=== PATIENT | male | born 1965 | race Caucasian/White ===

== ENCOUNTER 2016-09-08 19:57 | Emergency (ER) | payer BC ==
[~2016-09-08] VITALS: Ht 170.2 cm; Wt 71.0 kg
[~2016-09-08 19:57] MED LIST: CEPH500C3 PO; LORTA5 PO; PRED20 PO
[2016-09-08 20:00] VITALS: BP 154/103; PULSE 99; RESP 16; TEMP 98; O2SAT 96
[2016-09-08] MEDS ORDERED: NORC5TAB PO (22:13)
[2016-09-08] MEDS ORDERED: PRED20 PO (22:13)
[2016-09-08] MEDS ORDERED: AUGM875T PO (22:52)
--- NOTE | 2016-09-08 22:52 | PD ---
HPI Chief Complaint: ENT Complaint Time Seen by Provider: 22:50 Travel History International Travel<30 days: No Contact w/Intl Traveler<30days: No Traveled to known affect area: No History of Present Illness HPI 50-year-old male presents to emergency department for evaluation right ear pain. Patient states that he has had intermittent ear infections for the last year. He is been unable to follow-up with your nose and throat specialist due to insurance. Patient states over the last week the right ear pain has returned. She denies any trauma. No fever or chills. No drainage from the ear. He has not been recently ill. He has no other symptoms to report. PFSH Past Medical History Diminished Hearing: No Gastrointestinal Disorders: Yes (CROHNS DISEASE) Tetanus Vaccination: < 5 Years Influenza Vaccination: No Past Surgical History Abdominal Surgery: Yes (COLON RESECTION FOR CROHNS X 2) Social History Alcohol Use: Yes (OCCASSIONAL) Tobacco Use: Yes (1 PPD OVER 20 YEARS) Substance Use: No Allergies-Medications (Allergen,Severity, Reaction): Coded Allergies: No Known Allergies (Unverified , 09/08/16) Reported Meds & Prescriptions Reported Meds & Active Scripts Active Augmentin (Amoxicillin-Clavulanate) 875-125 mg Tab 875 Mg PO BID 14 Days not for use in CrCl <30 ml/min. Reported Worth (Hydrocodone-Acetaminophen) 5-325 mg Tab 1 Tab PO Q4H PRN Prednisone 20 Mg Tab 20 Mg PO DAILY Review of Systems Except as stated in HPI: all other systems reviewed are Neg Physical Exam Narrative GENERAL: Well-nourished, well-developed male patient, ambulatory no acute distress SKIN: Warm and dry. HEAD: Normocephalic. No mastoid tenderness EARS: Bilateral pinnae and external canals appear within normal limits left tympanic membranes without erythema, dullness or perforation. The right tympanic membrane is difficult to assess. There appears to be some degree of perforation. No drainage. Mild erythema. EYES: No scleral icterus. No injection or drainage. NECK: Supple, trachea midline. No JVD or lymphadenopathy. CARDIOVASCULAR: Regular rate and rhythm without murmurs, gallops, or rubs. RESPIRATORY: Breath sounds equal bilaterally. No accessory muscle use. GASTROINTESTINAL: Abdomen soft, non-tender, nondistended. MUSCULOSKELETAL: No cyanosis, or edema. BACK: Nontender without obvious deformity. No CVA tenderness. Data Data Last Documented VS Vital Signs Date Time Temp Pulse Resp B/P Pulse Ox O2 Delivery O2 Flow Rate FiO2 09/08/16 20:00 98.0 99 16 154/103 96 Room Air Orders Ketorolac Inj (Toradol Inj) (09/08/16 23:00) MDM Medical Decision Making Medical Screen Exam Complete: Yes Emergency Medical Condition: Yes Medical Record Reviewed: Yes Differential Diagnosis Otitis media acute versus chronic versus recurrent versus otitis externa versus cholesteatoma versus perforated tympanic membrane versus rupture Narrative Course 50-year-old male presents to emergency department for evaluation of right ear pain, consistent with previous exacerbations of recurrent otitis media. Patient appears without distress. I discussed the patient maintained physician Dr. Barr. He'll be started on Augmentin. I really did strongly encouraged follow-up with your nose and throat specialist so they can go and properly assess his ear as these have been going on for one year and not ever evaluated by an senior research executive. She verbalizes understanding. He agrees to return immediately with any acute worsening symptoms. Diagnosis Primary Impression: Otitis media Qualified Code: H65.194 - Other recurrent acute nonsuppurative otitis media of right ear Referrals: Ear / Nose / Throat Specialist Primary Care Physician Patient Instructions: General Instructions, Otitis Media (ED) Additional Instructions: Avoid water submersion Follow-up to primary care provider Your nose and throat specialist evaluation Return immediately with any acute worsening of symptoms Med/Other Pt SpecificInfo: Prescription(s) given Scripts Amoxicillin-Clavulanate (Augmentin)875-125 mg [id number] Mg PO BID 14 Days Ref 0 not for use in CrCl <30 ml/min. Prov:Mary Way 09/08/16 Disposition: 01 DISCHARGE HOME Condition: Stable [address] Sep 08, 2016 22:52
[2016-09-08] MEDS ORDERED: KETOROLAC TROMETHAMINE 60 MG/2 ML (IM) VIAL IM ONE (23:00)
== END 2016-09-08 23:16 | disposition home or self-care (01) ==
LOC: NEPB 19:57
DX: H65.194 Other acute nonsuppurative otitis media, recurrent, right ear (principal); F17.200 Nicotine dependence, unspecified, uncomplicated; Z87.19 Personal history of other diseases of the digestive system
CPT/HCPCS: 96372; 99283; J1885

== ENCOUNTER 2017-05-02 14:44 | Emergency (ER) | payer SELFPAY ==
[~2017-05-02] VITALS: Ht 170.2 cm; Wt 67.2 kg
[~2017-05-02 14:44] MED LIST changes: +AUGM875T PO; -CEPH500C3 PO; -LORTA5 PO; +NORC5TAB PO
[2017-05-02 14:46] VITALS: BP 131/86; PULSE 106; RESP 18; TEMP 98.3; O2SAT 96
--- NOTE | 2017-05-02 14:57 | PD ---
Physical Exam Time Seen by Provider: 14:56 Narrative Pt has history of crohns disease. Has been on prednisone for years; stopped taking it about a month ago secondary to insurance reasons. Joint pain started 1 week ago. Generalized; constant severe. 04/10. Pt has been chilled and more lethargic with generalized weakness. Pt has history of chronic pain on hydrocodone, gabapentin, and flexeril Data Data Last Documented VS Vital Signs Date Time Temp Pulse Resp B/P (MAP) Pulse Ox O2 Delivery O2 Flow Rate FiO2 05/02/17 21:46 93 20 113/73 (86) 100 05/02/17 19:15 Room Air 05/02/17 14:46 98.3 Orders Orders Complete Blood Count With Diff (05/02/17 14:58) Basic Metabolic Panel (Bmp) (05/02/17 14:58) Westergren Sedimentation Rate (05/02/17 14:58) Urinalysis - C+S If Indicated (05/02/17 19:14) Chest, Single Ap (05/02/17 19:14) Electrocardiogram (05/02/17 19:25) Creatine Kinase (Cpk) (05/02/17 19:25) Ckmb (Isoenzyme) Profile (05/02/17 19:25) Troponin I (05/02/17 19:25) B-Type Natriuretic Peptide (05/02/17 19:25) D-Dimer (05/02/17 19:25) Orthostatic Vital Signs (05/02/17 19:25) Sodium Chlor 0.9% 1000 Ml Inj (Ns 1000 M (05/02/17 20:15) Ketorolac Inj (Toradol Inj) (05/02/17 20:15) Labs Laboratory Tests Test 05/02/17 15:08 05/02/17 19:35 05/02/17 19:40 White Blood Count 11.4 TH/MM3 Red Blood Count 4.31 MIL/MM3 Hemoglobin 14.8 GM/DL Hematocrit 43.2 % Mean Corpuscular Volume 100.2 FL Mean Corpuscular Hemoglobin 34.4 PG Mean Corpuscular Hemoglobin Concent 34.3 % Red Cell Distribution Width 12.5 % Platelet Count 466 TH/MM3 Mean Platelet Volume 7.3 FL Neutrophils (%) (Auto) 71.1 % Lymphocytes (%) (Auto) 17.7 % Monocytes (%) (Auto) 7.3 % Eosinophils (%) (Auto) 3.0 % Basophils (%) (Auto) 0.9 % Neutrophils # (Auto) 8.1 TH/MM3 Lymphocytes # (Auto) 2.0 TH/MM3 Monocytes # (Auto) 0.8 TH/MM3 Eosinophils # (Auto) 0.3 TH/MM3 Basophils # (Auto) 0.1 TH/MM3 CBC Comment DIFF FINAL Differential Comment Erythrocyte Sedimentation Rate 21 mm/hr Blood Urea Nitrogen 10 MG/DL Creatinine 0.67 MG/DL Random Glucose 78 MG/DL Calcium Level 9.3 MG/DL Sodium Level 137 MEQ/L Potassium Level 3.9 MEQ/L Chloride Level 107 MEQ/L Carbon Dioxide Level 24.2 MEQ/L Anion Gap 6 MEQ/L Estimat Glomerular Filtration Rate 126 ML/MIN D-Dimer Quantitative (PE/DVT) 0.49 MG/L FEU Total Creatine Kinase 51 U/L Troponin I LESS THAN 0.02 NG/ML B-Type Natriuretic Peptide LESS THAN 2 PG/ML Urine Color LIGHT-YELLOW Urine Turbidity CLEAR Urine pH 5.0 Urine Specific [place] 1.008 Urine Protein NEG mg/dL Urine Glucose (UA) NEG mg/dL Urine Ketones TRACE mg/dL Urine Occult Blood NEG Urine Nitrite NEG Urine Bilirubin NEG Urine Urobilinogen LESS THAN 2.0 MG/DL Urine Leukocyte Esterase NEG Urine RBC 1 /hpf Microscopic Urinalysis Comment CULT NOT INDICATED MDM Medical Record Reviewed: Yes Supervised Visit with LIN: No Scripts Naproxen DR (EC-Naprosyn) 500 Mg Tabdr 500 MG PO BID Y for PAIN GREATER THAN 5, #10 TAB 0 Refills Prov: Ese Saenz MD 05/02/17 Condition: Stable [address] May 02, 2017 14:57
[2017-05-02 16:39] LABS: AUTOMATED NEUTROPHIL # 8.1 TH/MM3 (1.8-7.7); BASOPHIL # 0.1 TH/MM3 (0-0.2); BASOPHIL % 0.9 % (0.0-2.0); EOSINOPHIL # 0.3 TH/MM3 (0-0.4); HEMATOCRIT 43.2 % (39.0-51.0); HEMO FLAGS DIFF FINAL; LYMPH % 17.7 % (9.0-44.0); MEAN CELL VOLUME 100.2 FL (80.0-100.0); MEAN CORPUSCULAR HEMOGLOBIN 34.4 PG (27.0-34.0); MEAN CORPUSCULAR HGB CONC 34.3 % (32.0-36.0); MONO % 7.3 % (0.0-8.0); NEUT % 71.1 % (16.0-70.0); PLATELET COUNT 466 TH/MM3 (150-450); RED BLOOD COUNT 4.31 MIL/MM3 (4.50-5.90); RED CELL DISTRIBUTION WIDTH 12.5 % (11.6-17.2); WHITE BLOOD COUNT 11.4 TH/MM3 (4.0-11.0)
[2017-05-02 16:55] LABS: BICARBONATE 24.2 MEQ/L (21.0-32.0); POTASSIUM 3.9 MEQ/L (3.5-5.1)
[2017-05-02 19:15] VITALS: BP 139/98; PULSE 102; RESP 20; O2SAT 99
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
[2017-05-02 19:55] LABS: BLOOD, URINE NEG (NEG); COMMENT (UR) CULT NOT INDICATED; CULTURE IF INDICATED CULT NOT INDICATED; GLUCOSE,URINE NEG (NEG); KETONE, URINE TRACE mg/dL (NEG); NITRITE,URINE NEG (NEG); URINE COLOR LIGHT-YELLOW (YELLW/STRAW)
[2017-05-02 19:58] VITALS: BP 119/82; RESP 20
[2017-05-02 19:59] VITALS: BP 119/86; RESP 20
[2017-05-02 20:07] LABS: CREATINE KINASE 51 U/L (39-308)
[2017-05-02] MEDS ORDERED: KETOROLAC TROMETHAMINE 30 MG/ML (IVP) VIAL IV PUSH ONE (20:15)
[2017-05-02] MEDS ORDERED: SODIUM CHLOR 0.9% 1000 ML INJ 1,000 ML IV ONE (20:15)
--- NOTE | 2017-05-02 20:36 | RADRPT ---
EXAM DATE/TIME: 05/02/2017 19:18 [place] COMPARISON: No previous studies available for comparison. INDICATIONS : Syncope. MEDICAL HISTORY : Crohn's disease. SURGICAL HISTORY : Bowel resection. ENCOUNTER: Initial ACUITY: 1 day PAIN SCORE: 0/10 LOCATION: Bilateral chest FINDINGS: A single view of the chest demonstrates the lungs to be symmetrically aerated without evidence of mas s, infiltrate or effusion. The cardiomediastinal contours are unremarkable. Osseous structures are intact. CONCLUSION: No acute disease. Serjio Brownlee MD on May 02, 2017 at 20:34 Board Certified Radiologist. This report was verified electronically.
[2017-05-02] MEDS ORDERED: EC-N500T PO (21:00)
[2017-05-02 21:46] VITALS: BP 113/73
--- NOTE | 2017-05-03 08:29 | EKG ---
Date Performed: 05/02/2017 Time Performed: 19:53:47 PTAGE: 51 years EKG: Sinus rhythm NORMAL ECG PREVIOUS TRACING 09/29/1998 When compared to prior EKG, patient is no longer tachycardic. DOCTOR: Wendy Rodriguez Interpretating Date/Time 05/03/2017 08:27:27
== END 2017-05-02 21:51 | disposition home or self-care (01) ==
LOC: NEPC 14:44
DX: R55 Syncope and collapse (principal); M25.50 Pain in unspecified joint; R53.83 Other fatigue; R53.1 Weakness; R42 Dizziness and giddiness; R07.9 Chest pain, unspecified; R06.02 Shortness of breath; K50.90 Crohn's disease, unspecified, without complications; Z87.891 Personal history of nicotine dependence
CPT/HCPCS: 71010; 80048; 81001; 82550; 83880; 84484; 85025; 85379; 85652; 93005; 96374; 99285; J1885; J7030

== ENCOUNTER 2018-07-02 19:42 | Inpatient (IN) ==
[2018-07-02] MEDS ORDERED: Sod Chloride 0.9% Inj 1,000 ML IV.SIG ONE (20:35)
[2018-07-02] MEDS ORDERED: Morphine Inj 4 MG/ML Vial IV.PUSH ONE ×2 (20:35→23:39)
[2018-07-02] MEDS ORDERED: Sod Chloride 0.9% Inj 1,000 ML IV.SIG SCH (20:45)
[2018-07-02 20:57] LABS: Baso # (Auto) 0.1 th/mm3 (0.0-0.2); Baso % (Auto) 1.1 % (0.0-2.0); Eos # (Auto) 0.1 th/mm3 (0.0-0.4); Eos % (Auto) 1.7 % (0.0-4.0); Hematocrit 43.2 % (39.0-51.0); Hemoglobin 14.7 gm/dL (13.0-17.0); Lymph # (Auto) 1.7 th/mm3 (1.0-4.8); Mean Corpuscular Hemoglobin 33.7 pg (27.0-34.0); Mean Platelet Volume 7.4 fL (7.0-11.0); Mono # (Auto) 0.6 th/mm3 (0.0-0.9); Mono % (Auto) 7.4 % (0.0-8.0); Neut # (Auto) 5.6 th/mm3 (1.8-7.7); Neut % (Auto) 68.8 % (16.0-70.0); Platelet Count 339 th/mm3 (150-450); Red Blood Count 4.37 mil/mm3 (4.50-5.90); Red Cell Distribution Width 12.8 % (11.6-17.2); White Blood Count 8.1 th/mm3 (4.0-11.0)
[2018-07-02 21:06] LABS: Chloride 106 meq/L (98-107); Potassium 3.6 meq/L (3.5-5.1); Sodium 138 meq/L (136-145)
[2018-07-02 21:10] LABS: Albumin 3.3 g/dL (3.4-5.0); Anion Gap 10 meq/L (5-15); Calcium 8.3 mg/dL (8.5-10.1); Carbon Dioxide 22.1 meq/L (21.0-32.0); Glucose,Random 80 mg/dL (74-106); Lipase 111 U/L (73-393); Magnesium 2.1 mg/dL (1.5-2.5)
[2018-07-02 21:11] LABS: Blood Urea Nitrogen 5 mg/dL (7-18)
[2018-07-02 21:13] LABS: Alanine Aminotransferase 28 U/L (12-78); Aspartate Aminotransferase 20 U/L (15-37); Glomerular Filtration Rate Greater Than 89 mL/min (>89)
[2018-07-02 21:15] LABS: Total Protein 6.9 g/dL (6.4-8.2)
[2018-07-02 21:16] LABS: Alkaline Phosphatase 85 U/L (45-117)
[2018-07-02 21:47] LABS: Bilirubin,Urine Negative (Negative); Clarity,Urine Clear (Clear); Color,Urine Yellow (Yellw/Straw); Glucose,Urine (UA) Negative (Negative); Leukocyte Esterase,Urine Negative (Negative); Nitrite,Urine Negative (Negative); Specific Gravity,Urine 1.015 (1.002-1.035); Urobilinogen,Urine 0.2 mg/dL (Less than 2)
[2018-07-02 21:53] LABS: RBC,Urine 0-3 /hpf (0-3); Squamous Epithelial Cell,Urine 0-5 /hpf (0-5); WBC,Urine 0-5 /hpf (0-5)
--- NOTE | 2018-07-02 22:22 | CT ---
EXAM DATE: 07/02/2018 9:58 PM EST AGE/SEX: 52 years / Male INDICATIONS: Left lower quadrant pain, nausea and vomiting today. Constipation x 3 days. CLINICAL DATA: This is the patient's initial encounter. Patient reports that signs and symptoms have been present for 1 day and indicates a pain score of 5/10. MEDICAL/SURGICAL HISTORY: Crohn's disease. Hypertension. Colon resection. ORAL CONTRAST: No oral contrast ingested. RADIATION DOSE: 7.02 CTDI (mGy) COMPARISON: None available. TECHNIQUE: Multiple contiguous axial images were obtained through the abdomen and pelvis following b olus infusion of 95 ml Omnipaque 350 (iohexol) nonionic water-soluble contrast as a single exam dos e. No oral contrast ingested. Using automated exposure control and adjustment of the mA and/or kV ac cording to patient size, radiation dose was kept as low as reasonably achievable to obtain optimal di agnostic quality images. DICOM format image data is available electronically for review and comparis on. FINDINGS: LOWER LUNGS: Bibasilar airspace ground glass opacities. LIVER: The liver has a homogeneous density without space-occupying lesion. There is no dilation of t he biliary tree. 4 mm calcified gallstone. Mild diffuse gallbladder wall thickening. SPLEEN: Homogeneous density without enlargement. PANCREAS: Unremarkable without mass or calcification. KIDNEYS: Kidneys demonstrate symmetrical enhancement and are symmetrical in size without evidence fo r radiopaque renal calculi or hydronephrosis. ADRENAL GLANDS: Unremarkable. AORTA: Sherice-aneurysmal. BOWEL/MESENTERY: Postsurgical features of prior partial right hemicolectomy. Several loops of margin ally distended jejunum in the left upper quadrant without focal transition point. More distally, smal l bowel loops are decompressed. no free fluid or drainable fluid collections. No free air. ABDOMINAL WALL: Intact. Small fat-containing bilateral inguinal hernias. RETROPERITONEUM: No evidence of adenopathy in the retrocrural, para-aortic, or deep pelvic regions. BLADDER: Contours are smooth. REPRODUCTIVE: Coarse prostate calcifications. BONY STRUCTURES: Degenerative spondylosis of the lower lumbar spine most prominently at L5-S1 with s evere disc space narrowing and posterior disc osteophytes. CONCLUSION: 1. Cholelithiasis with mild diffuse gallbladder wall thickening. If there is sufficient clinical con cern regarding cholecystitis, consider ultrasound examination for further evaluation. 2. Postsurgical features of prior partial right hemicolectomy. No CT evidence for significant coliti s. 3. Nonspecific partially distended jejunal loops in the left upper quadrant. 4. Additional ancillary findings, as above. Electronically signed by: Renny Feng MD 07/02/2018 10:20 PM EST
--- NOTE | 2018-07-02 23:09 | US ---
EXAM DATE: 07/02/2018 11:02 PM EST AGE/SEX: 52 years / Male INDICATIONS: Pain. Left lower quadrant pain, nausea and vomiting, constipation. CLINICAL DATA: This is the patient's subsequent encounter. Patient reports that signs and symptoms h ave been present for 1 day and indicates a pain score of 2/10. MEDICAL/SURGICAL HISTORY: . Chemotherapy. HTN. Crohn's disease. Sepsis. Skin cancer. . Hem icolectomy. COMPARISON: [facility], CT ABDOMEN & PELVIS W CONTRAST, 07/02/2018. . MEASUREMENTS: Liver:__ 17.4 cm. Common Bile Duct:__ 2mm. Right Kidney:__ 12.0 x 5.0 x 5.8 cm. FINDINGS: Liver: Normal echotexture without focal lesion or ductal dilatation. Portal Vein: Hepatopedal flow seen in portal vein. Common Duct: No intraluminal mass or stone visualized. Gallbladder: Multiple calcified gallstones seen throughout the lumen of the gallbladder. The gallblad carlos is not dilated. The wall is thickened measuring 5 mm. No pericholecystic fluid. Pancreas: The visualized portions are within normal limits Right Kidney: Normal echotexture and cortical thickness. No mass or hydronephrosis. Other: None. CONCLUSION: 1. Cholelithiasis with gallbladder wall thickening but no dilatation of the gallbladder. Consider ch ronic cholecystitis. Electronically signed by: Anastacio Land MD 07/02/2018 11:08 PM EST
[2018-07-02] MEDS ORDERED: Pantoprazole Inj 40 MG Vial IV.PUSH ONE (23:17)
--- NOTE | 2018-07-02 23:25 | ED ---
HPI General Chief Complaint: Abdominal Pain Stated Complaint: crohns relapse Time Seen by Provider: 07/02/18 20:35 Source: patient Mode of arrival: ambulatory Limitations: no limitations History of Present Illness HPI narrative: 52-year-old male presents to the emergency department for complaint of severe abdominal pain left lower quadrant and also some epigastric discomfort. Patient states has had constipation times 3 days which is atypical for him due to his history of ulcerative colitis with frequent diarrhea stool. Patient denies any melena or hematochezia. Patient has had coffee-ground emesis today multiple times at least 6 Separate episodes. Patient has had ongoing nausea denies any gross blood. Patient states that he has tolerated oral hydration earlier today but not this evening. Patient states left lower quadrant abdominal pain is worsening. Patient has not been under the care of a managing physician regarding his colitis for some time. Patient has had previous hemicolectomy in the past. Patient denies any prior history of bowel obstruction. Patient does not report any feculent emesis or bilious emesis. Patient had no fever but has experienced chills. Patient denies any right upper quadrant pain. Patient does admit to drinking 2 beers earlier today while he was watching football but noted pain started to worsen and vomiting developed shortly thereafter and did not notice any gross blood but has had black emesis numerous times. Patient had no dizziness near syncope or syncope. Patient denies any chest pain. Patient had no flank pain and no referred pain to the back. No prior history of cholecystitis or pancreatitis or peptic ulcer disease per patient. Patient has not been taking NSAIDs. Patient denies other concerns or complaints. MD complaint: Reports abdominal pain Onset (ago): day(s) Pain Consistency: constant Location: Reports LLQ and epigastric Severity: severe Severity scale (1-10): 8 Quality: Reports cramping and aching Radiation: Reports none Migration to: Reports LUQ, LLQ and epigastric Relieving factors: nothing Exacerbating factors: eating and vomiting Context: Reports history of similar episodes (ulcerative colitis); Denies foreign travel, possible food poisoning, sick contacts, recent antibiotic use, recent surgery/procedure and recent injury Associated symptoms: Reports nausea, vomiting ("black, coffee grounds"), chills and constipation (x3days); Denies diarrhea, fever, dysuria, hematemesis, hematochezia, melena, hematuria, anorexia and syncope Treatments prior to arrival: Denies NSAIDs Related Data Home Medications Medication Instructions Recorded Confirmed cyclobenzaprine 10 mg PO TID 07/02/18 07/02/18 hydrocodone-acetaminophen 1 tab PO Q6H 07/02/18 07/02/18 lisinopril 10 mg PO DAILY 07/02/18 07/02/18 prednisone 10 mg PO DAILY 07/02/18 07/02/18 Allergies Allergy/AdvReac Type Severity Reaction Status Date / Time No Known Allergies Allergy Verified 07/02/18 20:04 Review of Systems ROS: all other systems reviewed are negative [facility] Medical History Medical History Back pain (Acute) HTN (hypertension) (Acute) History of chemotherapy (Acute) History of neck pain (Acute) Hx of Crohn's disease (Acute) Sepsis (Acute) Skin cancer (Acute) Surgical History Surgical History History of bowel resection (Acute) Social History Social History Substance History: No History of Abuse Second Hand Smoke Exposure: No Smoking Status: Current every day smoker Tobacco Type: Cigarettes How Often Do You Have a Drink Containing Alcohol: 2 to 3 times a week Recent Travel in [facility] within the Last 8 Weeks: No Recent Out of Country Travel within the Last 8 Weeks: No Immunization History Tetanus Immunization: <5 Years Exam Narrative Exam Narrative: GENERAL: Well-nourished, well-developed patient. SKIN: Focused skin assessment warm/dry. HEAD: Normocephalic. EYES: No scleral icterus. No injection or drainage. NECK: Supple, trachea midline. No JVD or lymphadenopathy. CARDIOVASCULAR: Regular rate and rhythm without murmurs, gallops, or rubs. RESPIRATORY: Breath sounds equal bilaterally. No accessory muscle use. GASTROINTESTINAL: Abdomen soft, reproducible epigastric tenderness and left lower quadrant tenderness to palpation with most tenderness noted to the left lower quadrant with voluntary guarding no rebound, nondistended. Rectal exam: Normal sphincter tone dark green loose stool that is briskly Hemoccult positive MUSCULOSKELETAL: No cyanosis, or edema. BACK: Nontender without obvious deformity. No CVA tenderness. Procedures Hemaprompt Stool Procedural Steps Taken: specimen placed in appropriate test area, developer placed on specimen and control areas and controls appropriately positive and negative Hemaprompt Stool Result: positive Course Consultations Consultation #1: discussed with Dr Brandt for OBS upper gibleed/acute gastritis/ alcohol gastritis; h/o ulcerative colitis --no exacerbation noted by CT but cholelithiasis and US GB c/ew chronic cholelithiasis Initial Documented Vital Signs Temperature 99 F 07/02/18 19:46 Pulse Rate 100 H 07/02/18 19:46 Respiratory Rate 16 07/02/18 19:46 Blood Pressure 156/100 H 07/02/18 19:46 Pulse Oximetry 98 07/02/18 19:46 Last Documented Vital Signs Temperature 99 F 07/02/18 19:46 Pulse Rate 78 07/02/18 23:00 Respiratory Rate 18 07/02/18 23:00 Blood Pressure 145/96 H 07/02/18 23:00 Pulse Oximetry 98 07/02/18 23:00 Medical Decision Making MDM Narrative Medical decision making narrative: 52-year-old male with history of ulcerative colitis presents for complaint of severe abdominal pain left lower quadrant and developing epigastric pain with black coffee-ground emesis x6 today no near syncope or syncope has had subjective chills without fever. Patient has not had vomiting times 2 days which is atypical for him no prior history of small bowel obstruction but typically has diarrhea and denies any melena or hematochezia. Patient admits to drinking 2 beers earlier today. Patient has had decreased dietary intake but has tolerated some fluids until approximately 6 PM with multiple episodes of coffee-ground and dark emesis approximately 6 times. Patient rates pain as 6-8/10 in intensity. Nonradiating to the back. No prior history of gallbladder disease peptic ulcer disease or pancreatitis. Patient denies chest pain or shortness of breath. No recent respiratory illness. Patient is obvious discomfort on exam and appears mildly ill rectal exam is briskly Hemoccult positive IV access obtained specimens collected and sent for resulting patient administered 2 L of normal saline Zofran 4 mg IV without symptomatic relief Reglan 10 mg IV with good control of nausea and 1 times dose of her feet sulfate 4 mg IV with pain management CT abdomen pelvis identifies evidence of cholelithiasis with some mild thickening of the gallbladder wall with recommendation of ultrasound in view of patient had recurrent epigastric pain will obtain ultrasound which identifies patient to have changes consistent with chronic cholecystitis no acute cholecystitis changes per reading radiologist. Patient does not have elevation of LFTs for obstructive process and no evidence of elevated lipase for pancreatitis. Patient's hemoglobin is stable. Patient's pain and nausea has returned and patient does have reproducible epigastric tenderness and is aware that CT abdomen pelvis reveals no evidence for acute colitis or bowel obstruction but continues to complain of some mild improved left lower quadrant tenderness. Review of imaging study results and ongoing symptoms with complaint of coffee-ground emesis with brisk Hemoccult positive stool will place patient in observation for possible alcohol gastritis acute gastritis with mild GI bleed associated with gastritis. Patient's case has been discussed with on-call medicine service will admit patient to observation to their service at this time. Patient has been given Protonix 40 mg IV. Medical Screen Exam Complete: Yes Emergency Medical Condition: Yes Differential Diagnosis Differential Diagnosis: Abdominal pain, gastritis, alcohol gastritis, gi bleed, cholecystitis, pancreatitis, colitis, small bowel obstruction, ileus, diverticulitis Medical Records Medical records reviewed: Yes I reviewed the patient's medical records. Lab Data Lab results reviewed: Yes I reviewed the patient's lab results. Result diagrams: 07/02/18 20:40 07/02/18 20:40 Lab Results 07/02/18 07/02/18 07/02/18 Range/Units 20:40 20:40 20:40 CBC w Diff Auto diff final WBC 8.1 (4.0-11.0) th/mm3 RBC 4.37 L (4.50-5.90) mil/mm3 Hgb 14.7 (13.0-17.0) gm/dL Hct 43.2 (39.0-51.0) % MCV 99.0 (80.0-100.0) fL MCH 33.7 (27.0-34.0) pg MCHC 34.0 (32.0-36.0) % RDW 12.8 (11.6-17.2) % Plt Count 339 (150-450) th/mm3 MPV 7.4 (7.0-11.0) fL Neut % (Auto) 68.8 (16.0-70.0) % Lymph % (Auto) 21.0 (9.0-44.0) % Nicholas % (Auto) 7.4 (0.0-8.0) % Eos % (Auto) 1.7 (0.0-4.0) % Baso % (Auto) 1.1 (0.0-2.0) % Neut # (Auto) 5.6 (1.8-7.7) th/mm3 Lymph # (Auto) 1.7 (1.0-4.8) th/mm3 Nicholas # (Auto) 0.6 (0.0-0.9) th/mm3 Eos # (Auto) 0.1 (0.0-0.4) th/mm3 Baso # (Auto) 0.1 (0.0-0.2) th/mm3 WBC Differential . Differential Comment . Sodium 138 (136-145) meq/L Potassium 3.6 (3.5-5.1) meq/L Chloride 106 (98-107) meq/L Carbon Dioxide 22.1 (21.0-32.0) meq/L Anion Gap 10 (5-15) meq/L BUN 5 L (7-18) mg/dL Creatinine 0.63 (0.60-1.30) mg/dL Estimated GFR Greater than 89 (>89) mL/min Random Glucose 80 (74-106) mg/dL Lactic Acid 1.5 (0.4-2.0) mmol/L Calcium 8.3 L (8.5-10.1) mg/dL Magnesium 2.1 (1.5-2.5) mg/dL Total Bilirubin 0.3 (0.2-1.0) mg/dL AST 20 (15-37) U/L ALT 28 (12-78) U/L Alkaline Phosphatase 85 (45-117) U/L Total Protein 6.9 (6.4-8.2) g/dL Albumin 3.3 L (3.4-5.0) g/dL Lipase 111 (73-393) U/L Urine Color (Yellw/Straw) Urine Clarity (Clear) Urine pH (5.0-8.5) Ur Specific Valentine (1.002-1.035) Urine Protein (Neg-Trace) mg/dL Urine Glucose (UA) (Negative) mg/dL Urine Ketones (Negative) mg/dL Urine Occult Blood (Negative) Urine Nitrate (Negative) Urine Bilirubin (Negative) Urine Urobilinogen (Less than 2) mg/dL Ur Leukocyte Esterase (Negative) Urine RBC (0-3) /hpf Urine WBC (0-5) /hpf Ur Squamous Epith Cells (0-5) /hpf Micro UA Comment Ur Microscopic Review Urine Culture Comments 07/02/18 Range/Units 21:42 CBC w Diff WBC (4.0-11.0) th/mm3 RBC (4.50-5.90) mil/mm3 Hgb (13.0-17.0) gm/dL Hct (39.0-51.0) % MCV (80.0-100.0) fL MCH (27.0-34.0) pg MCHC (32.0-36.0) % RDW (11.6-17.2) % Plt Count (150-450) th/mm3 MPV (7.0-11.0) fL Neut % (Auto) (16.0-70.0) % Lymph % (Auto) (9.0-44.0) % Nicholas % (Auto) (0.0-8.0) % Eos % (Auto) (0.0-4.0) % Baso % (Auto) (0.0-2.0) % Neut # (Auto) (1.8-7.7) th/mm3 Lymph # (Auto) (1.0-4.8) th/mm3 Nicholas # (Auto) (0.0-0.9) th/mm3 Eos # (Auto) (0.0-0.4) th/mm3 Baso # (Auto) (0.0-0.2) th/mm3 WBC Differential Differential Comment Sodium (136-145) meq/L Potassium (3.5-5.1) meq/L Chloride (98-107) meq/L Carbon Dioxide (21.0-32.0) meq/L Anion Gap (5-15) meq/L BUN (7-18) mg/dL Creatinine (0.60-1.30) mg/dL Estimated GFR (>89) mL/min Random Glucose (74-106) mg/dL Lactic Acid (0.4-2.0) mmol/L Calcium (8.5-10.1) mg/dL Magnesium (1.5-2.5) mg/dL Total Bilirubin (0.2-1.0) mg/dL AST (15-37) U/L ALT (12-78) U/L Alkaline Phosphatase (45-117) U/L Total Protein (6.4-8.2) g/dL Albumin (3.4-5.0) g/dL Lipase (73-393) U/L Urine Color Yellow (Yellw/Straw) Urine Clarity Clear (Clear) Urine pH 6.0 (5.0-8.5) Ur Specific Valentine 1.015 (1.002-1.035) Urine Protein Negative (Neg-Trace) mg/dL Urine Glucose (UA) Negative (Negative) mg/dL Urine Ketones Negative (Negative) mg/dL Urine Occult Blood Negative (Negative) Urine Nitrate Negative (Negative) Urine Bilirubin Negative (Negative) Urine Urobilinogen 0.2 (Less than 2) mg/dL Ur Leukocyte Esterase Negative (Negative) Urine RBC 0-3 (0-3) /hpf Urine WBC 0-5 (0-5) /hpf Ur Squamous Epith Cells 0-5 (0-5) /hpf Micro UA Comment Culture not ind Ur Microscopic Review Microscopic reviewed Urine Culture Comments Culture not ind Imaging Data Radiologist's impression: Abdomen/Pelvis CT 07/02/18 20:35 CONCLUSION: 1. Cholelithiasis with mild diffuse gallbladder wall thickening. If there is sufficient clinical concern regarding cholecystitis, consider ultrasound examination for further evaluation. 2. Postsurgical features of prior partial right hemicolectomy. No CT evidence for significant colitis. 3. Nonspecific partially distended jejunal loops in the left upper quadrant. 4. Additional ancillary findings, as above. Liver Ultrasound 07/02/18 22:33 CONCLUSION: 1. Cholelithiasis with gallbladder wall thickening but no dilatation of the gallbladder. Consider chronic cholecystitis. Discharge Plan Discharge Disposition Patient Disposition: ED Admit(ED Internal Use Only) Discharge Condition Condition: Stable Discharge Details Diagnosis: Gastritis, Upper GI bleed Physicians Team ED Provider: Iris Noel Primary Care Provider: Primary Care Cande Phelps Attending Provider: Melanie Brandt Discharge Interventions Interventions: Vital Signs Last Done: 07/02/18 23:00 Status ED Status: Admitted Observation Patient
[2018-07-02] MEDS ORDERED: Bisacodyl 10 MG Supp RECTAL PRN (23:38)
[2018-07-02] MEDS ORDERED: Acetaminophen 325 MG Tablet PO PRN (23:38)
[2018-07-02] MEDS: Sod Chloride 0.9% Inj 1,000 ML IV.CONT SCH (23:54)
[2018-07-03] MEDS: Morphine Sulfate Inj 2 MG/ML Vial IV.PUSH PRN ×4 (03:44→21:19)
[2018-07-03 06:12] LABS: Baso # (Auto) 0.1 th/mm3 (0.0-0.2); Baso % (Auto) 1.1 % (0.0-2.0); Eos # (Auto) 0.2 th/mm3 (0.0-0.4); Eos % (Auto) 2.5 % (0.0-4.0); Hematocrit 37.3 % (39.0-51.0); Hemoglobin 12.6 gm/dL (13.0-17.0); Lymph % (Auto) 32.7 % (9.0-44.0); Mean Corpuscular HGB Conc 33.7 % (32.0-36.0); Mean Corpuscular Hemoglobin 33.5 pg (27.0-34.0); Mean Corpuscular Volume 99.6 fL (80.0-100.0); Mean Platelet Volume 7.4 fL (7.0-11.0); Mono # (Auto) 0.6 th/mm3 (0.0-0.9); Neut # (Auto) 3.3 th/mm3 (1.8-7.7); Neut % (Auto) 53.7 % (16.0-70.0); Platelet Count 284 th/mm3 (150-450); Red Blood Count 3.75 mil/mm3 (4.50-5.90); Red Cell Distribution Width 12.8 % (11.6-17.2); White Blood Count 6.2 th/mm3 (4.0-11.0)
[2018-07-03 06:21] LABS: Chloride 111 meq/L (98-107); Potassium 3.7 meq/L (3.5-5.1); Sodium 141 meq/L (136-145)
[2018-07-03 06:53] LABS: Alanine Aminotransferase 21 U/L (12-78); Albumin 2.7 g/dL (3.4-5.0); Alkaline Phosphatase 67 U/L (45-117); Anion Gap 6 meq/L (5-15); Aspartate Aminotransferase 17 U/L (15-37); Blood Urea Nitrogen 5 mg/dL (7-18); Calcium 7.8 mg/dL (8.5-10.1); Carbon Dioxide 23.8 meq/L (21.0-32.0); Glomerular Filtration Rate Greater Than 89 mL/min (>89); Glucose,Random 71 mg/dL (74-106); Total Protein 5.4 g/dL (6.4-8.2)
--- NOTE | 2018-07-03 08:27 | P.HPIM ---
History of Present Illness Primary Care Physician: No Primary Care Physician Patient is a pleasant 52-year-old male with past medical history of Crohn's disease and hypertension presenting to emergency department for new onset left lower quadrant abdominal pain. Patient reports that he was diagnosed with Crohn 's disease in 2002 and underwent a colectomy the same year. Patient reports that he has not followed up regularly with a park manager due to insurance issues and says that he self medicates himself with prednisone that he uses for a chronic neck and back condition that he suffered years ago. Patient reports that symptoms started 1 day prior to admission with a cramping, 8/10, pain in the left lower quadrant with some radiation to the epigastric region. Patient reports that symptoms were constant associated with nausea and bloody nonbilious emesis. Patient reports that he was possibly retching and noticed that his emesis was very dark in color. No alleviating or aggravating component. Patient reports that he is still a current smoker of 2-3 cigarettes/ day. The night before symptoms started the patient patient reports that he had had a very oily meal of a big Mac and [place] fries and then woke up on Tuesday morning around 8:30 AM with all of his symptoms. Review of systems also positive for reduced p.o. intake, subjective fevers, generalized weakness. Review of systems negative for chest pain, shortness of breath, melena, hematuria, syncope, pain with urination, or bright red blood per rectum. In emergency department patient received CT abdomen and pelvis which showed some evidence of cold lithiasis but no evidence at the time of acute cholecystitis. Gastroenterology consultation obtained by emergency department. Lipase level normal. Patient was started on Protonix 40 mg IV for suspected gastrointestinal bleed. Medicine called and patient admitted for further workup. 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: (2) Crohn disease: (3) Hypertension: (4) Smoker within last 12 months: Review of Systems Review of Systems: all other systems reviewed are negative [facility] Medical History Medical History Back pain (Acute) HTN (hypertension) (Acute) History of chemotherapy (Acute) History of neck pain (Acute) Hx of Crohn's disease (Acute) Sepsis (Acute) Skin cancer (Acute) Surgical History Surgical History History of bowel resection (Acute) Social History Social History Substance History: No History of Abuse Second Hand Smoke Exposure: Yes Smoking Status: Current every day smoker Tobacco Type: Cigarettes How Often Do You Have a Drink Containing Alcohol: 2 to 3 times a week Recent Travel in [facility] within the Last 8 Weeks: No Recent Out of Country Travel within the Last 8 Weeks: No Immunization History Tetanus Immunization: <5 Years Medications and Allergies Allergies Allergy/AdvReac Type Severity Reaction Status Date / Time No Known Allergies Allergy Verified 07/02/18 20:04 Home Medications Medication Instructions Recorded Confirmed Type cyclobenzaprine 10 mg PO TID 07/02/18 07/02/18 History hydrocodone-acetaminophen 1 tab PO Q6H 07/02/18 07/02/18 History lisinopril 10 mg PO DAILY 07/02/18 07/02/18 History prednisone 10 mg PO DAILY 07/02/18 07/02/18 History Active Medications: Active Medications Acetaminophen (Tylenol) 650 mg PO Q4H PRN PRN Reason: Temp > 100.4 Al Hydroxide/Mg Hydroxide (Milk Of Magnesia Liq) 30 ml PO Q12H PRN PRN Reason: Mild Constipation Bisacodyl (Dulcolax Supp) 10 mg RECTAL DAILY PRN PRN Reason: SEVERE CONSITIPATION Sodium Chloride (Ns Inj) 1,000 mls @ 100 mls/hr IV.CONT .Q10H RADHA Last Admin: 07/02/18 23:54 Dose: 100 mls/hr Lactulose (Lactulose Liq) 30 ml PO DAILY PRN PRN Reason: SEVERE CONSITIPATION Morphine Sulfate (Morphine Inj) 2 mg IV.PUSH Q4H PRN PRN Reason: PAIN 6-10 Last Admin: 07/03/18 03:44 Dose: 2 mg Ondansetron HCl (Zofran Inj) 4 mg IV.PUSH Q6H PRN PRN Reason: NAUSEA OR VOMITING Last Admin: 07/03/18 02:23 Dose: 4 mg Pantoprazole Sodium (Protonix Inj) 40 mg IV.PUSH Q12H [facility] Senna/Docusate Sodium (Shira-Colace) 1 tab PO BID [facility] Sennosides (Senokot) 17.2 mg PO Q12H PRN PRN Reason: Moderate Constipation Sodium Chloride (Ns Flush) 2 ml IV.FLUSH BID RADHA Sodium Chloride (Ns Flush) 2 ml IV.FLUSH PRN PRN PRN Reason: FLUSH AFTER USING IV ACCESS Physical Exam Vital signs: Last Vital Signs Temp 96.5 F L 07/03/18 00:00 Pulse 80 07/03/18 00:05 Resp 18 07/03/18 04:24 BP 135/85 07/03/18 00:05 Pulse Ox 98 07/03/18 00:00 Intake & Output 07/01/18 07/02/18 07/03/18 07/04/18 06:59 06:59 06:59 06:59 Intake Total 1999 Output Total 550 / 550 Balance 1450 / 1450 Weight 68.5 kg General: No acute distress, conversational Cardiovascular: S1/S2. No murmurs rubs or gallops appreciated Respiratory: Clear to auscultation anteriorly and posteriorly Gastrointestinal: Soft, minimal tenderness in epigastric region, no tenderness in left lower quadrant at this time, no guarding, no rebound, positive bowel sounds, midline surgical scar clean dry and intact. Extremity: No lower extremity edema. 2+ bounding dorsalis pedis pulse appreciated bilaterally. Capillary refill less than 2 seconds bilaterally Results Labs CBC & Chem 7: 07/03/18 05:15 07/03/18 05:15 Imaging Impressions Abdomen/Pelvis CT 07/02/18 20:35 CONCLUSION: 1. Cholelithiasis with mild diffuse gallbladder wall thickening. If there is sufficient clinical concern regarding cholecystitis, consider ultrasound examination for further evaluation. 2. Postsurgical features of prior partial right hemicolectomy. No CT evidence for significant colitis. 3. Nonspecific partially distended jejunal loops in the left upper quadrant. 4. Additional ancillary findings, as above. Liver Ultrasound 07/02/18 22:33 CONCLUSION: 1. Cholelithiasis with gallbladder wall thickening but no dilatation of the gallbladder. Consider chronic cholecystitis. Caprini VTE Risk Assessment Caprini VTE Risk Assessment: No/Low Risk (score <= 1) VTE Pharmacological Exception Reason: Active bleeding Caprini Risk Assessment Model: Point Value = 1 Point Value = 2 Point Value = 3 Point Value = 5 Age 41-60 Minor surgery BMI > 25 kg/m2 Swollen legs Varicose veins or History of unexplained or recurrent spontaneous Oral contraceptives or hormone replacement Sepsis (< 1 month) Serious lung disease, including pneumonia (< 1 month) Abnormal pulmonary function Acute myocardial infarction Congestive heart failure (< 1 month) History of inflammatory bowel disease Medical patient at bed rest Age 61-74 Arthroscopic surgery Major open surgery (> 45 min) Laparoscopic surgery (> 45 min) Malignancy Confined to bed (> 72 hours) Immobilizing plaster cast Central venous access Age >= 75 History of VTE Family history of VTE Factor V Leiden Prothrombin [id number] Lupus anticoagulant Anticardiolipin antibodies Elevated serum homocysteine Heparin-induced thrombocytopenia Other congenital or acquired thrombophilia Stroke (< 1 month) Elective arthroplasty Hip, pelvis, or leg fracture Acute spinal cord injury (< 1 month) Prophylaxis Regimen: Total Risk Factor Score Risk Level Prophylaxis Regimen 0-1 Low Early ambulation 2 Moderate Order ONE of the following: *Sequential Compression Device (SCD) *Heparin 5000 units SQ BID 3-4 Higher Order ONE of the following medications: *Heparin 5000 units SQ TID *Enoxaparin/Lovenox 40 mg SQ daily (WT < 150 kg, CrCl > 30 mL/min) *Enoxaparin/Lovenox 30 mg SQ daily (WT < 150 kg, CrCl > 10-29 mL/min) *Enoxaparin/Lovenox 30 mg SQ BID (WT < 150 kg, CrCl > 30 mL/min) AND/OR *Sequential Compression Device (SCD) 5 or more Highest Order ONE of the following medications: *Heparin 5000 units SQ TID (Preferred with Epidurals) *Enoxaparin/Lovenox 40 mg SQ daily (WT < 150 kg, CrCl > 30 mL/min) *Enoxaparin/Lovenox 30 mg SQ daily (WT < 150 kg, CrCl > 10-29 mL/min) *Enoxaparin/Lovenox 30 mg SQ BID (WT < 150 kg, CrCl > 30 mL/min) AND *Sequential Compression Device (SCD) Assessment and Plan (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 Current recommendations are for 8-10 years after diagnosis patient to have screening colonoscopy as patients tend to have increased risk of colorectal cancer. Recommend that upon discharge patient have referral for primary doctor follow-up as well as park manager. Gastro consulted and recommendations to be appreciated via EMR HIDA scan to rule out developing cholecystitis based on patient's history of epigastric pain, and symptom onset after eating oily meal day before. Continue Protonix 40 mg IV given history of retching with blood in vomitus. Maintain active type and screen, transfuse less than 8 hemoglobin, 2 large bore 18-gauge Continue n.p.o. status for now. Consider EGD after HIDA scan is completed. Gastroenterology to comment Suspect the patient's blood pressure elevation and cataracts are due to prednisone use. May benefit from maintenance therapy as an outpatient. Will need case management to assist with services to help provide payment. Patient currently works for himself and does not have total insurance coverage Zofran PRN nausea IV fluid hydration Pain control with morphine 2 mg IV every 4 hours if needed Continue Cipro and Flagyl and discontinue if HIDA scan comes back negative for acute cholecystitis infection. CODE STATUS: Full code DVT prophylaxis: SCD/ambulation Diet: N.p.o. Disposition: [facility] H&P: Quality VTE Deep Vein Thrombosis/Pulmonary Embolism Present on Admission: No
--- NOTE | 2018-07-03 08:59 | MB ---
cc: Khalida Johnson MD DATE: 07/03/2018 REFERRING PHYSICIAN: Dr. Chow. REASON FOR CONSULTATION: Nausea, vomiting, history of Crohn disease. HISTORY OF PRESENT ILLNESS: Mr. Mclaughlin is a pleasant 52-year-old gentleman with history of Crohn disease dating back in 2002, not on any medication other than for flare-ups. The patient came to the emergency room with complaints of severe abdominal pain, mostly in the epigastrium left upper quadrant, and also being unable to have a bowel movement for the last 3 days. The patient also stated he had some nausea and vomiting coffee-ground material along with undigested food. He does not think he had any fever or chills. There is some mild weight loss, but not significant. He is not passing any flatus at this time. He was diagnosed in 2002 with Crohn disease. At that time, he underwent emergency hemicolectomy for what appears to be intra-abdominal abscess. He stated he had a followup colonoscopy afterwards; but he did not have insurance, so for this reason, he did not followup with any GI doctor. He does have some skin rashes on his buttocks. They drain from time to time. Possible history of perianal fistula, but not at this point. PAST MEDICAL HISTORY: Crohn disease as described, back pain, hypertension, skin cancer. PAST SURGICAL HISTORY: Bowel resection. MEDICATIONS: In the hospital are Tylenol, milk of magnesia, bisacodyl, lactulose, morphine, Zofran, Senokot, IV fluids medication, prednisone, hydrocodone, cyclobenzaprine, lisinopril. ALLERGIES: NO KNOWN ALLERGIES. FAMILY HISTORY: He denies any family history of colon cancer or any GI symptoms. SOCIAL HISTORY: Denies any drug use. Smokes daily. REVIEW OF SYSTEMS: GENERAL: He denies any fever, chills, weight gain. He does have some weight loss. ENT: No alteration of baseline hearing or visual activity. PULMONARY: Denies any chest pain, shortness of breath. GASTROINTESTINAL: As above. GENITOURINARY: Denies dysuria or hematuria. HEMATOLOGICAL: No history of anemia or bleeding disorder. SKIN: No alteration of baseline skin lesion. NEUROLOGIC: No history of TIA or CVA kind of symptoms. PHYSICAL EXAMINATION: GENERAL: Patient is sitting comfortably in bed, in no acute distress. VITAL SIGNS: Temperature is 96.5, pulse is 99, blood pressure 135/91. HEENT: PERRLA. NECK: No JVD. No lymphadenopathy. CHEST: Clear to auscultation and palpation. CARDIOVASCULAR: S1, S2. No murmur. ABDOMEN: Soft, nontender, mildly distended in the epigastrium. Scar in the midline perianal. No fistulas. EXTREMITIES: No pedal edema. SKIN: He has multiple healed lesions on his buttocks, on abdomen. None of them are draining at this time. DIAGNOSTIC DATA: CMP is essentially normal except albumin 2.7. His CBC 6.2 white count, hemoglobin 12.6, platelets normal. Urine normal. The patient had a liver ultrasound, which showed cholelithiasis with gallbladder wall thickening, but no dilatation of the gallbladder, possible chronic cholecystitis. CT abdomen and pelvis showed cholelithiasis with mild diffuse gallbladder wall thickening. Post-surgical features of prior partial right hemicolectomy. No CT evidence of colitis. Nonspecific partial distended jejunal loops in the left upper quadrant. Degenerative spondylosis. IMPRESSION: Mr. Arnoldo tadeo is a 52-year-old gentleman with history of Crohn disease, admitted to the hospital with nausea, vomiting, constipation going on for 3 days. Findings suggestive of possible cholecystitis gallstones and dilated loops of jejunum. No indication of bowel obstruction, but at least partial small-bowel obstruction is in the differential. RECOMMENDATIONS: If the patient continues to have nausea and vomiting, insert NG tube to suction. N.p.o. except medications. HIDA scan. General surgery consultation. Start Solu-Medrol 40 mg IV q.8 hours. Cipro and Flagyl. Small bowel follow-through once able to tolerate p.o. or through the NG tube. Patient may need an upper endoscopy and colonoscopy before discharge. May consider treatment with biologics once discharged. I would like to thank Dr. Chow for referring him to our office for consultation. Further recommendation will depend on the patient's clinical status and the above results. MD KING Harkisn/scar , 08:29 AM , 08:[address] [facility] CENTERDarvin
[2018-07-03] MEDS: Pantoprazole Inj 40 MG Vial IV.PUSH SCH ×2 (09:45→20:29)
[2018-07-03] MEDS: Senna/Docusate Sodium 8.6/50 MG Tablet PO SCH ×2 (09:45→20:29)
[2018-07-03] MEDS: Sod Chloride 0.9% Inj 1,000 ML IV.CONT SCH ×2 (09:46→21:59)
--- NOTE | 2018-07-03 12:43 | NM ---
EXAM DATE: 07/03/2018 12:26 PM EST AGE/SEX: 52 years / Male INDICATIONS: Abdominal pain. CLINICAL DATA: This is the patient's initial encounter. Patient reports that signs and symptoms have been present for 1 day and indicates a pain score of 6/10. MEDICAL/SURGICAL HISTORY: Crohn's disease. Hypertension. Sepsis. . Bowel resection. COMPARISON: No prior exams available for comparison. DOSE: 4.4 mCi Tc-99m mebrofenin i.v. Medication: 1.3 mcg Cholecystokinin IV Similar symptomatic response Cholecystokinin was administered by slow infusion over 8 minutes beginning at 60 min volodymyr brody. TECHNIQUE: Following the intravenous administration of radiotracer, dynamic sequential images were pe rformed with continuous acquisition. Time-activity curves were generated. FINDINGS: Hepatic Kinetics: There is prompt uptake of radiotracer in the liver. No focal defects are seen. Ther e is normal rate of washout from the hepatic parenchyma. Biliary Clearance: Activity is first seen in the extrahepatic biliary system at 10 minutes. There is normal excretion into the small bowel. Gallbladder: Activity is first seen in the gallbladder at 45 minutes. Post-CCK: After CCK administration, there is poor emptying of the gallbladder with a 20% ejection fra ction. Common bile duct kinetics are normal and there is no evidence of biliary obstruction. Similar symptomatic response after cholecystokinin infusion. Biliary-Enteric Reflux: None observed. CONCLUSION: 1. Poor contraction of the gallbladder following CCK. This is nonspecific but can be seen with chron ic gallbladder disease. 2. No mechanical biliary tract obstruction. Electronically signed by: Cheikh Jonas MD 07/03/2018 12:41 PM EST
[2018-07-03] MEDS: Ciprofloxacin 400 MG/200 ML 400 MG/200 ML PIGGYBACK IV.SIG SCH ×2 (13:00→22:10)
[2018-07-03] MEDS: MethylPREDNISolone Sod Succinate Inj 40 MG/ML Vial IV.PUSH SCH ×2 (14:51→22:07)
--- NOTE | 2018-07-03 22:21 | ECG ---
Date Performed: 07/03/2018 Time Performed: 20:33:46 PTAGE: 52 years EKG: Sinus rhythm SEPTAL MYOCARDIAL INFARCTION ABNORMAL ECG Compared to prior electrocardiogram, Possible septal infar ct pattern is present although this could be due to changes in lead placement. Clinical correlation s uggested. PREVIOUS TRACING : 05/02/2017 19.53 DOCTOR: Feng Diaz Interpretating Date/Time 07/03/2018 22:20:02
[2018-07-04] MEDS: Morphine Sulfate Inj 2 MG/ML Vial IV.PUSH PRN ×6 (01:24→22:09)
[2018-07-04] MEDS: Sod Chloride 0.9% Inj 1,000 ML IV.CONT SCH ×2 (03:30→17:51)
[2018-07-04] MEDS: MethylPREDNISolone Sod Succinate Inj 40 MG/ML Vial IV.PUSH SCH ×3 (05:23→22:10)
[2018-07-04 05:30] LABS: Hematocrit 36.9 % (39.0-51.0); Hemoglobin 12.4 gm/dL (13.0-17.0); Mean Corpuscular HGB Conc 33.6 % (32.0-36.0); Mean Corpuscular Hemoglobin 33.3 pg (27.0-34.0); Mean Corpuscular Volume 99.1 fL (80.0-100.0); Mean Platelet Volume 7.4 fL (7.0-11.0); Platelet Count 295 th/mm3 (150-450); Red Blood Count 3.72 mil/mm3 (4.50-5.90); Red Cell Distribution Width 12.2 % (11.6-17.2); White Blood Count 4.2 th/mm3 (4.0-11.0)
[2018-07-04 05:37] LABS: Prothrombin Time 10.6 sec (9.8-11.6)
[2018-07-04 05:42] LABS: Chloride 109 meq/L (98-107); Sodium 141 meq/L (136-145)
[2018-07-04 05:46] LABS: Anion Gap 9 meq/L (5-15); Blood Urea Nitrogen 6 mg/dL (7-18); Calcium 7.6 mg/dL (8.5-10.1); Carbon Dioxide 23.2 meq/L (21.0-32.0); Glucose,Random 127 mg/dL (74-106); Magnesium 1.8 mg/dL (1.5-2.5)
[2018-07-04 05:49] LABS: Glomerular Filtration Rate Greater Than 89 mL/min (>89)
[2018-07-04] MEDS: Pantoprazole Inj 40 MG Vial IV.PUSH SCH ×2 (08:57→20:05)
[2018-07-04] MEDS: Senna/Docusate Sodium 8.6/50 MG Tablet PO SCH ×2 (09:50→20:06)
[2018-07-04] MEDS: Ciprofloxacin 400 MG/200 ML 400 MG/200 ML PIGGYBACK IV.SIG SCH ×2 (09:52→22:10)
--- NOTE | 2018-07-04 09:53 | P.CONGS ---
[facility] Gen Surgery Consult Note Consult date: 07/04/18 Reason for consult: gallstones Requesting physician: Khalida Johnson Narrative: This is a 52-year-old male with a past medical history of Crohn's disease status post colectomy in 2003. The patient came to the ED on Tuesday with complaints of left lower quadrant abdominal pain with associated nausea. The patient states he is not on any Biologics for his Crohn's disease due to lack of insurance. He has not been following regularly with a GI doctor and reports his last endoscopy and colonoscopy were in [address] abdomen pelvis was obtained which shows cholelithiasis with mild diffuse gallbladder wall thickening. A liver ultrasound confirms cholelithiasis with no dilatation of the gallbladder. His liver enzymes are normal. The patient has been evaluated by Dr. Johnson and is scheduled for an endoscopy procedure today. A General Surgery consultation has been requested. Review of Systems All other systems reviewed negative except as stated in [facility] PMF - History History Provided By: Patient - Medical History Medical History: Medical History (Last Reviewed 07/04/18 @ 09:47 by CHEYENNE Palacios) Back pain HTN (hypertension) History of neck pain Hx of Crohn's disease Sepsis Skin cancer - Surgical History Surgical History: Surgical History (Last Reviewed 07/04/18 @ 09:48 by CHEYENNE Palacios) History of bowel resection - Tobacco History Second Hand Smoke Exposure: Yes Tobacco Use In Past 30 Days: Yes Smoking Status: Current every day smoker Tobacco Type: Cigarettes - Alcohol History How Often Do You Have a Drink Containing Alcohol: 2 to 4 times a month - Substance Use History Substance History: No History of Abuse - Travel History Recent Travel in the [place] Within the Last 8 Weeks: No Recent Travel Out of the Country Within the Last 8 Weeks: No - Immunization History Tetanus Immunization: <5 Years Medications and Allergies Active Medications: Active Medications Acetaminophen (Tylenol) 650 mg PO Q4H PRN PRN Reason: Temp > 100.4 Al Hydroxide/Mg Hydroxide (Milk Of Magnyung Liq) 30 ml PO Q12H PRN PRN Reason: Mild Constipation Bisacodyl (Dulcolax Supp) 10 mg RECTAL DAILY PRN PRN Reason: SEVERE CONSITIPATION Cyclobenzaprine HCl (Flexeril) 10 mg PO TID [facility] Last Admin: 07/04/18 08:58 Dose: 10 mg Sodium Chloride (Ns Inj) 1,000 mls @ 100 mls/hr IV.CONT .Q10H [facility] Last Admin: 07/04/18 03:30 Dose: 100 mls/hr Ciprofloxacin/Dextrose (Cipro 400 Mg/200 Ml Inj) 400 mg in 200 mls @ 200 mls/ hr IV.SIG Q12H [facility] Last Infusion: 07/04/18 01:19 Dose: Infused Metronidazole/Sodium Chloride (Flagyl 500 Mg Inj) 100 mls @ 100 mls/hr IV.SIG Q8H [facility] Last Admin: 07/04/18 08:58 Dose: 100 mls/hr Lactulose (Lactulose Liq) 30 ml PO DAILY PRN PRN Reason: SEVERE CONSITIPATION Methylprednisolone Sodium Succinate (Solumedrol Inj) 40 mg IV.PUSH Q8HR [facility] Last Admin: 07/04/18 05:23 Dose: 40 mg Morphine Sulfate (Morphine Inj) 2 mg IV.PUSH Q4H PRN PRN Reason: PAIN 6-10 Last Admin: 07/04/18 05:23 Dose: 2 mg Ondansetron HCl (Zofran Inj) 4 mg IV.PUSH Q6H PRN PRN Reason: NAUSEA OR VOMITING Last Admin: 07/03/18 17:07 Dose: 4 mg Pantoprazole Sodium (Protonix Inj) 40 mg IV.PUSH Q12H [facility] Last Admin: 07/04/18 08:57 Dose: 40 mg Senna/Docusate Sodium (Shira-Colace) 1 tab PO BID [facility] Last Admin: 07/03/18 20:29 Dose: 1 tab Sennosides (Senokot) 17.2 mg PO Q12H PRN PRN Reason: Moderate Constipation Sodium Chloride (Ns Flush) 2 ml IV.FLUSH BID [facility] Last Admin: 07/04/18 08:58 Dose: 2 ml Sodium Chloride (Ns Flush) 2 ml IV.FLUSH PRN PRN PRN Reason: FLUSH AFTER USING IV ACCESS Allergies Allergy/AdvReac Type Severity Reaction Status Date / Time No Known Allergies Allergy Verified 07/02/18 20:04 Home Medications Medication Instructions Recorded Confirmed Type cyclobenzaprine 10 mg PO TID 07/02/18 07/02/18 History hydrocodone-acetaminophen 1 tab PO Q6H 12/02/18 12/02/18 History lisinopril 10 mg PO DAILY 07/02/18 07/02/18 History prednisone 10 mg PO DAILY 07/02/18 07/02/18 History Exam Vital signs: Vital Signs 07/03/18 12:00 07/03/18 16:00 07/03/18 19:00 Temperature 97.2 F L 97.8 F 97.5 F L Pulse Rate 64 68 74 Respiratory Rate 20 20 20 Blood Pressure 119/78 140/81 135/79 Pulse Oximetry 98 98 07/04/18 00:00 07/04/18 08:00 07/04/18 09:23 Temperature 97.2 F L 97.4 F L Pulse Rate 62 60 Respiratory Rate 20 20 20 Blood Pressure 125/65 142/81 H Pulse Oximetry 96 Intake & Output 07/03/18 07/04/18 07/04/18 18:59 06:59 18:59 Intake Total 1400 / 1400 1820 / 1820 Balance 1400 / 1400 1820 / 1820 Intake: IV 1400 / 1400 1300 / 1300 NS Inj 1,000 ML @ 100 mls/hr IV 1000 / 1000 1000 / 1000 .CONT .Q10H [facility] Rx#:[id number] Cipro 400 MG/200 ML Inj 400 mg 200 / 200 200 / 200 In 200 ml @ 200 mls/hr IV.SIG Q12H [facility] Rx#:[id number] Flagyl 500 MG Inj 100 ML @ 100 200 / 200 100 / 100 mls/hr IV.SIG Q8H [facility] Rx#: [id number] Oral 520 / 520 Other: # Voids 2 3 Date of Last Bowel Movement 07/03/18 07/03/18 07/03/18 # Bowel Movements 1 Narrative: GENERAL: Very pleasant 52 year old male resting in bed in no acute distress. SKIN: Warm and dry. HEAD: Atraumatic. Normocephalic. EYES: Pupils equal and round. No scleral icterus. No injection or drainage. ENT: No nasal bleeding or discharge. Mucous membranes pink and moist. NECK: Trachea midline. CARDIOVASCULAR: Regular rate and rhythm. RESPIRATORY: No accessory muscle use. Clear to auscultation. Breath sounds equal bilaterally. GASTROINTESTINAL: Abdomen soft, nondistended. He has a large well healed midline scar. He has mild epigastric tenderness with palpation. MUSCULOSKELETAL: Extremities without clubbing, cyanosis, or edema. No obvious deformities. NEUROLOGICAL: Awake and alert. No obvious cranial nerve deficits. Motor grossly within normal limits. Five out of 5 muscle strength in the arms and legs. Normal speech. PSYCHIATRIC: Appropriate mood and affect; insight and judgment normal. Results - Labs 07/04/18 04:50 07/04/18 04:50 Laboratory Results - last 24 hr 07/04/18 07/04/18 07/04/18 04:50 04:50 04:50 WBC 4.2 RBC 3.72 L Hgb 12.4 L Hct 36.9 L MCV 99.1 MCH 33.3 MCHC 33.6 RDW 12.2 Plt Count 295 MPV 7.4 PT 10.6 INR 1.0 Sodium 141 Potassium 4.0 Chloride 109 H Carbon Dioxide 23.2 Anion Gap 9 BUN 6 L Creatinine 0.63 Estimated GFR Greater than 89 Random Glucose 127 H Calcium 7.6 L Magnesium 1.8 - Imaging Imaging: ITS Impressions Abdomen/Pelvis CT 07/02/18 20:35 CONCLUSION: 1. Cholelithiasis with mild diffuse gallbladder wall thickening. If there is sufficient clinical concern regarding cholecystitis, consider ultrasound examination for further evaluation. 2. Postsurgical features of prior partial right hemicolectomy. No CT evidence for significant colitis. 3. Nonspecific partially distended jejunal loops in the left upper quadrant. 4. Additional ancillary findings, as above. Liver Ultrasound 07/02/18 22:33 CONCLUSION: 1. Cholelithiasis with gallbladder wall thickening but no dilatation of the gallbladder. Consider chronic cholecystitis. Bile Acid Absorption NM 07/03/18 00:00 CONCLUSION: 1. Poor contraction of the gallbladder following CCK. This is nonspecific but can be seen with chronic gallbladder disease. 2. No mechanical biliary tract obstruction. CT scan - abdomen: image reviewed US - abdomen: image reviewed Additional studies: HIDA reviewed Assessment and Plan - Assessment (1) Cholelithiasis Code(s): K80.20 - Calculus of gallbladder without cholecystitis without obstruction Status: Acute Plan: 52 year old male with Crohn's disease; cholelithiasis -Recommend continued workup from GI for Crohn's disease -May need to be on biologics--defer to GI -LFTs remain normal -Patient can follow up in the office as outpatient for elective cholecystectomy -Thank you for this consult - Plan Discussed Condition With: Dr. Vivian Mclaughlin
--- NOTE | 2018-07-04 16:54 | GIPROC ---
[facility] [address] [place] [address], [id number] EGD PROCEDURE REPORT EXAM DATE: 07/04/2018 PATIENT NAME: Joey Mcalughlin MR #: [id number] BIRTHDATE: 1965 ATTENDING: Ariane Cox MD ORDER #: [id number] BRIQUETTING MACHINE OPERATOR: Trish Guidry and Nayeli Pereyra STATUS: inpatient INDICATIONS: The patient is a 52 yr old male here for an EGD due to epigastric abdominal pain PROCEDURE PERFORMED: EGD w/ biopsy MEDICATIONS: None and Per Anesthesia. TOPICAL ANESTHETIC: CONSENT: The patient understands the risks and benefits of the procedure and understands that these risks include, but are not limited to: sedation, allergic reaction, infection, perforation and/or bleeding. Alternative means of evaluation and treatment include, among others: physical exam, x-rays, and/or surgical intervention. The patient elects to proceed with this endoscopic procedure. medical equipment was checked for proper function. Hand hygiene and appropriate measures for infection prevention was taken. After the risks, benefits and alternatives of the procedure were thoroughly explained, Informed consent was verified, confirmed and timeout was successfully executed by the treatment team. The patient was anesthetized with topical anesthesia and the Pentax EG-[id number] endoscope was introduced through the mouth and advanced to the second portion of the duodenum. Retroflexed views revealed no abnormalities The gastroscope was then slowly withdrawn and removed. ESOPHAGUS: There was LA Class A esophagitis noted. A biopsy was performed using cold forceps. Sample sent for histology. STOMACH: There was erythematous moderate gastritis in the gastric antrum. A biopsy was performed using cold forceps. Sample sent for histology. Moderate portal hypertensive gastropathy was found in the gastric fundus and gastric body. DUODENUM: The duodenal mucosa appeared normal in the bulb and second portion of the duodenum. ADVERSE EVENTS: There were no complications. IMPRESSIONS: 1. There was LA Class A esophagitis noted; biopsy was performed 2. There was erythematous gastritis in the gastric antrum; biopsy was performed 3. Portal hypertensive gastropathy was found in the gastric fundus and gastric body 4. Normal duodenal mucosa in the bulb and second portion of the duodenum 5. Retroflexed views revealed no abnormalities RECOMMENDATIONS: 1. Await biopsy results. Biopsy results will not be ready for 7-10 days. If you don't hear from us in two weeks, call our office for biopsy results. 2. Anti-reflux regimen 3. Continue PPI 4. Xray: Small bowel follow through PATIENT CONDITION: stable DISPOSITION: Inpatient REPEAT EXAM: Return 1 year EGD pending biopsy results Ariane Cox MD eSigned: Ariane Cox MD 07/04/2018 4:53 PM cc: PATIENT NAME: Joey Mclaughlin MR#: [id number]
--- NOTE | 2018-07-04 18:40 | P.PNIM ---
Subjective Interval history: 52yo m w crohns and abd pain w nv awaiting egd today pt seen and examined, doing better, no nv, no sob, no cp, pain is epigastric and intermittent Physical Exam Vital signs: Last Vital Signs Temp 97.9 F 07/04/18 17:20 Pulse 63 07/04/18 17:20 Resp 16 07/04/18 17:20 BP 125/75 07/04/18 17:20 Pulse Ox 96 07/04/18 17:20 Intake & Output 07/02/18 07/03/18 07/04/18 07/05/18 06:59 06:59 06:59 06:59 Intake Total 1999 / 1999 3220 / 3220 1500 / 1500 Output Total 550 / 550 Balance 1450 / 1450 3220 / 3220 1500 / 1500 Weight 68.5 kg wdwn 52yo w m aaox3 nad heart s1s2 reg lungs clear no wrr full expansion abd soft nondt pos bs mod epigastric tenderness ext no edema no calf tenderness Results Labs CBC & Chem 7: 07/04/18 04:50 07/04/18 04:50 Labs: Microbiology 07/02/18 20:40 Blood - Peripheral Aerobic Blood Culture - Preliminary No growth in 2 days 07/02/18 20:40 Blood - Peripheral Anaerobic Blood Culture - Preliminary No growth in 2 days 07/02/18 20:49 Blood - Peripheral Aerobic Blood Culture - Preliminary No growth in 2 days 07/02/18 20:49 Blood - Peripheral Anaerobic Blood Culture - Preliminary No growth in 2 days Assessment and Plan (1) Cholelithiasis: Code(s): K80.20 - Calculus of gallbladder without cholecystitis without obstruction Status: Acute Plan ACUTE EXACERBATION OF CROHNS - cont steroids and follow up w GI ACUTE ESOPHAGITIS and ERYTHEMATOUS GASTRITIS - PPI fu w gi PORTAL HYPERTENSIVE GASTROPATHY - follow up w GI, cont ppi HTN - cont home meds CHOLELITHIASIS - outpatient followup w surgery Progress Note: Quality VTE Deep Vein Thrombosis/Pulmonary Embolism Present on Admission: No _ (1) Cholelithiasis Qualifiers: Cholelithiasis location: Cholecystitis presence: Cholangitis presence: Cholecystitis acuity: Cholangitis acuity: Biliary obstruction:
[2018-07-05] MEDS: Morphine Sulfate Inj 2 MG/ML Vial IV.PUSH PRN ×4 (02:46→14:55)
[2018-07-05] MEDS: Sod Chloride 0.9% Inj 1,000 ML IV.CONT SCH ×2 (04:21→13:27)
[2018-07-05] MEDS: MethylPREDNISolone Sod Succinate Inj 40 MG/ML Vial IV.PUSH SCH ×2 (05:20→13:23)
[2018-07-05] MEDS: Senna/Docusate Sodium 8.6/50 MG Tablet PO SCH (08:27)
[2018-07-05] MEDS: Pantoprazole Inj 40 MG Vial IV.PUSH SCH (08:30)
[2018-07-05] MEDS: Ciprofloxacin 400 MG/200 ML 400 MG/200 ML PIGGYBACK IV.SIG SCH (09:44)
--- NOTE | 2018-07-05 13:31 | FL ---
EXAM DATE: 07/05/2018 1:02 PM EST AGE/SEX: 52 years / Male INDICATIONS: Crohn's, abdominal pain. CLINICAL DATA: This is the patient's subsequent encounter. Patient reports that signs and symptoms h ave been present for 3 days and indicates a pain score of 0/10. MEDICAL/SURGICAL HISTORY: Hypertension. Crohn?s disease. Sepsis. . Bowel resection. COMPARISON: No prior exams available for comparison. FLUORO TIME: 2.3 IMAGE COUNT: 16 CONTRAST: FINDINGS: There is good visualization of the small bowel. There are no constricting or obstructing lesions iden tified. Small bowel transit time is 30 minutes. CONCLUSION: Negative small bowel follow-through in this patient with Crohn's disease. MRI enterography could be used to follow this Crohn's disease patient. Electronically signed by: Vinnie Perez MD 07/05/2018 1:30 PM EST
[2018-07-05 19:52] LABS: IgA Serum 187 mg/dL (81-463); Tissue Transglutaminase Ab IgG ND U/mL (())
== END 2018-07-05 15:21 | disposition home or self-care (01) ==
LOC: PHED 19:42 → PHEDA 19:42 → PH3 07-03 00:15
PROVIDERS: ADMIT Internal Medicine; ATTEND Internal Medicine
DX: Z85.828 Personal history of other malignant neoplasm of skin; K80.21 Calculus of gallbladder without cholecystitis with obstruction; K20.9 Esophagitis, unspecified; K29.70 Gastritis, unspecified, without bleeding; K76.6 Portal hypertension; M07.60 Enteropathic arthropathies, unspecified site; K50.911 Crohn's disease, unspecified, with rectal bleeding; R63.4 Abnormal weight loss; H26.9 Unspecified cataract; Z90.49 Acquired absence of other specified parts of digestive tract; T38.0X5A Adverse effect of glucocorticoids and synthetic analogues, initial encounter; Z92.21 Personal history of antineoplastic chemotherapy; I10 Essential (primary) hypertension; F17.210 Nicotine dependence, cigarettes, uncomplicated